=== PATIENT | male | born 1960 | race Caucasian/White ===

== ENCOUNTER → 2023-10-01 14:27 | Outpatient (REF) | payer OTHER, SELFPAY | LOC: DHCBS MAIN 14:27 | PROVIDERS: ATTENDING PHYSICIAN Physician Assistant; FAMILY PHYSICIAN Family Medicine | DX: I48.0 Paroxysmal atrial fibrillation (principal); I42.8 Other cardiomyopathies | CPT/HCPCS: 93306 ==